=== PATIENT | female | born 1975 | race Two or more races ===

== ENCOUNTER 2021-10-29 08:55 | Inpatient (IN) | payer MEDICAID, OTHER ==
[~2021-10-29] VITALS: Ht 157.5 cm; Wt 82.0 kg
[2021-10-29 10:43] LABS: Basophils # (auto) 0 10 ^3/uL (0-0.2); Basophils % (auto) 0.1 % (0.0-2.0); Eosinophils # (auto) 0 10 ^3/uL (0-0.8); Hematocrit 39.6 % (36.0-46.0); Hemoglobin 12.9 g/dL (12.2-16.2); Lymphocytes # (auto) 1.2 10 ^3/uL (0.4-5.4); Lymphocytes % (auto) 14.9 % (10.0-50.0); Mean Corpuscular Hemoglobin 26.5 pg (28.0-32.0); Mean Corpuscular Hgb Conc. 32.6 g/dL (32.0-36.0); Mean Corpuscular Volume 81.1 fL (80.0-100.0); Monocytes # (auto) 0.6 10 ^3/uL (0-1.3); Monocytes % (auto) 7.1 % (0.0-12.0); Neutrophils # (auto) 6.5 10 ^3/uL (1.6-8.6); Neutrophils % (auto) 77.9 % (37.0-80.0); Red Blood Cells 4.88 10^6/uL (4.0-5.20); Red Cell Distribution Width 14.6 % (11.8-14.3); White Blood Cell 8.4 10^3/uL (4.4-10.8)
[2021-10-29 10:45] LABS: Albumin 2.5 g/dL (3.4-5.0); Magnesium 2.9 mg/dL (1.6-2.6); Potassium 3.8 mmol/L (3.5-5.1)
[2021-10-29 10:58] LABS: BUN/Creatinine Ratio 10.3; Bilirubin, Total 0.4 mg/dL (0.2-1.0); Total Protein 7.3 g/dL (6.4-8.2)
[2021-10-29] MEDS ORDERED: DexAMETHasone SOD PHOS 10MG/1ML VIAL INJ IV ONE (11:45)
[2021-10-29] MEDS ORDERED: cefTRIAXone 1GM/50ML D5W 50 ML IV ONE (11:45)
[2021-10-29] MEDS ORDERED: AZITHROMYCIN 500MG/ 250ML 250 ML IV ONE (11:45)
[2021-10-29] MEDS ORDERED: DEXTROSE (50%) 50ML SYRG IV PRN ×2 (13:15→17:30)
[2021-10-29] MEDS ORDERED: NITROGLYCERIN 0.4 MG SL TAB SL PRN ×2 (13:15→18:30)
[2021-10-29] MEDS ORDERED: MORPHINE SULFATE INJECTION 2 MG/ML SYRG IV PRN ×3 (13:15→18:30)
[2021-10-29] MEDS ORDERED: IOHEXOL 350 MG/ML 100ML IJ ONE (13:51)
[2021-10-29] MEDS ORDERED: ACCU-CHEK COMFORT CURVE STRIP VI SCH (17:00)
[2021-10-29] MEDS ORDERED: InsuLIN REG 1unit/0.01ml Soln (100units/ml) SC SCH ×2 (17:00→22:00)
[2021-10-29] MEDS: ACCU-CHEK COMFORT CURVE STRIP VI SCH (18:00)
[2021-10-29] MEDS: InsuLIN REG 1unit/0.01ml Soln (100units/ml) SC SCH (18:00)
[2021-10-29] MEDS ORDERED: REMDESIVIR PER PHARMACY 0 ML IV SCH (18:15)
[2021-10-29] MEDS ORDERED: METOPROLOL SUCCINATE XL 50 MG TAB PO ONE (18:15)
[2021-10-29] MEDS ORDERED: ACETAMINOPHEN 500 MG TAB PO PRN (18:15)
[2021-10-29] MEDS ORDERED: FUROSEMIDE 20 MG/2 ML VIAL IV ONE (18:15)
[2021-10-29] MEDS ORDERED: FAMOTIDINE (10MG/ML) 2ML VL IV ONE (18:15)
[2021-10-29] MEDS ORDERED: ALUM & MAG HYDROX-SIMETH LIQ(MAALOX) 30 ML PO PRN (18:30)
[2021-10-29] MEDS ORDERED: LORazepam 0.5 MG TAB PO PRN (18:30)
[2021-10-29] MEDS ORDERED: DOCUSATE SOD 100 MG CAP PO PRN (18:30)
[2021-10-29] MEDS ORDERED: METOCLOPRAMIDE HCL 5MG/ml INJ 2ml VIAL IV PRN (18:30)
[2021-10-29] MEDS ORDERED: HYDROcodone-ACET 5/325MG TAB PO PRN (18:30)
[2021-10-29 19:30] LABS: Thyroid Stimulating Hormone 0.53 uIU/mL (0.358-3.74)
[2021-10-29] MEDS ORDERED: REMDESIVIR 200 MG in NS 210ml LOADING DOSE ADULT IV ONE (20:30)
[2021-10-29 21:55] VITALS: BP 110/73
[2021-10-29 21:55] LABS: Cholesterol 106 mg/dL (< 200); HDL Cholesterol 44 mg/dL (40-59); LDL Cholesterol 53 mg/dL (< 100); Triglycerides 89 mg/dL (< 150)
[2021-10-29 22:00] VITALS: BP 110/73
[2021-10-29] MEDS ORDERED: PNEUMOCOCCAL VACC POLYS 25 MCG/0.5 ML VIAL IM ONE (22:00)
[2021-10-29] MEDS ORDERED: ATORVASTATIN 20 MG TAB PO SCH (22:00)
[2021-10-29] MEDS: BUDESONIDE (INHALATION) 180 MCG IH IN SCH (22:00)
[2021-10-29] MEDS ORDERED: INFLUENZA QUAD 2021-2022 0.5 ML SYRG IM ONE (22:00)
[2021-10-29] MEDS ORDERED: METF-370 PO (22:00)
[2021-10-29] MEDS: FAMOTIDINE (10MG/ML) 2ML VL IV SCH (22:16)
[2021-10-29] MEDS: DOXYCYCLINE 100MG/250ML 250 ML IV SCH (22:16)
[2021-10-29] MEDS: POTASSIUM CHL 20 Meq TABLET PO SCH (22:17)
[2021-10-29] MEDS: ENOXAPARIN SOD 40 MG/0.4 ML SYRINGE SC SCH (22:17)
[2021-10-29] MEDS: ALBUTEROL SULF HFA 90MCG INH 200DOSE IN PRN (22:48)
[2021-10-30] MEDS: ACCU-CHEK COMFORT CURVE STRIP VI SCH ×4 (00:01→17:38)
[2021-10-30] MEDS: InsuLIN REG 1unit/0.01ml Soln (100units/ml) SC SCH ×4 (00:01→17:40)
[2021-10-30 05:00] VITALS: BP 102/70
[2021-10-30] MEDS: FUROSEMIDE 20 MG/2 ML VIAL IV SCH ×2 (05:19→17:38)
[2021-10-30] MEDS: BUDESONIDE (INHALATION) 180 MCG IH IN SCH ×2 (05:55→19:22)
[2021-10-30] MEDS: ALBUTEROL SULF HFA 90MCG INH 200DOSE IN PRN ×2 (05:55→20:51)
[2021-10-30 08:19] LABS: Basophils # (auto) 0 10 ^3/uL (0-0.2); Basophils % (auto) 0.1 % (0.0-2.0); Eosinophils # (auto) 0 10 ^3/uL (0-0.8); Hematocrit 38.4 % (36.0-46.0); Hemoglobin 12.6 g/dL (12.2-16.2); Lymphocytes # (auto) 1.4 10 ^3/uL (0.4-5.4); Lymphocytes % (auto) 29.6 % (10.0-50.0); Mean Corpuscular Hemoglobin 26.5 pg (28.0-32.0); Mean Corpuscular Hgb Conc. 32.8 g/dL (32.0-36.0); Mean Corpuscular Volume 80.8 fL (80.0-100.0); Monocytes # (auto) 0.8 10 ^3/uL (0-1.3); Monocytes % (auto) 17.5 % (0.0-12.0); Neutrophils # (auto) 2.5 10 ^3/uL (1.6-8.6); Neutrophils % (auto) 52.8 % (37.0-80.0); Nucleated Red Blood Cells % 0.1 %; Red Blood Cells 4.75 10^6/uL (4.0-5.20); Red Cell Distribution Width 14.9 % (11.8-14.3); White Blood Cell 4.7 10^3/uL (4.4-10.8)
[2021-10-30 08:26] LABS: Potassium 3.6 mmol/L (3.5-5.1)
[2021-10-30 08:34] LABS: INR 0.99 (0.9-1.15); Partial Thromboplastin Time 28.2 sec (23.6-33.0)
[2021-10-30 08:36] LABS: Albumin 2.5 g/dL (3.4-5.0); BUN/Creatinine Ratio 22.1; Bilirubin, Total 0.3 mg/dL (0.2-1.0); Calcium 7.9 mg/dL (8.5-10.1); Phosphorus 2.6 mg/dL (2.5-4.90); Total Protein 7.2 g/dL (6.4-8.2); Uric Acid 3.6 mg/dL (2.6-6.0)
[2021-10-30 09:11] VITALS: BP 99/69
[2021-10-30] MEDS: IVERMECTIN 3 MG TAB PO SCH (09:41)
[2021-10-30] MEDS: ASPirin 81 mg TAB PO SCH (09:44)
[2021-10-30] MEDS: ENOXAPARIN SOD 40 MG/0.4 ML SYRINGE SC SCH ×2 (09:45→21:31)
[2021-10-30] MEDS: ZINC SULFATE 220mg CAP or TAB PO SCH (09:45)
[2021-10-30] MEDS: POTASSIUM CHL 20 Meq TABLET PO SCH ×2 (09:45→21:31)
[2021-10-30] MEDS: ASCORBIC ACID 1,000 MG TAB PO SCH (09:45)
[2021-10-30] MEDS: DexAMETHasone SOD PHOS 10MG/1ML VIAL INJ IV SCH (09:46)
[2021-10-30] MEDS: FAMOTIDINE (10MG/ML) 2ML VL IV SCH (09:46)
[2021-10-30] MEDS: DOXYCYCLINE 100MG/250ML 250 ML IV SCH ×2 (09:46→21:31)
[2021-10-30] MEDS ORDERED: METOPROLOL SUCCINATE XL 50 MG TAB PO SCH (10:00)
[2021-10-30] MEDS ORDERED: CHOLECALCIFEROL (VITD3) 2,000 UNIT CAP/TAB PO SCH (10:00)
[2021-10-30 13:00] VITALS: BP 111/74
[2021-10-30] MEDS ORDERED: REMDESIVIR 200 MG in NS 210ml LOADING DOSE ADULT IV ONE (13:00)
[2021-10-30] MEDS ORDERED: DEXTROSE (50%) 50ML SYRG IV PRN (16:45)
[2021-10-30] MEDS ORDERED: ERGOCALCIFEROL 50,000 UNIT(1.25MG) CAP PO SCH (16:45)
[2021-10-30 17:12] VITALS: BP 113/72
[2021-10-30 22:00] VITALS: BP 114/70
[2021-10-30] MEDS ORDERED: INSULIN LANTUS (GLARGINE) 1 /0.01ml (100units/ml) SC SCH (22:00)
[2021-10-31] MEDS: InsuLIN REG 1unit/0.01ml Soln (100units/ml) SC SCH ×5 (00:04→23:54)
[2021-10-31] MEDS: ACCU-CHEK COMFORT CURVE STRIP VI SCH ×5 (00:04→23:37)
[2021-10-31 05:00] VITALS: BP 100/67
[2021-10-31] MEDS: FUROSEMIDE 20 MG/2 ML VIAL IV SCH ×2 (05:54→17:57)
[2021-10-31 09:00] VITALS: BP 98/68
[2021-10-31 09:09] LABS: Albumin 2.6 g/dL (3.4-5.0); BUN/Creatinine Ratio 21.3; Calcium 8.4 mg/dL (8.5-10.1); Potassium 3.5 mmol/L (3.5-5.1)
[2021-10-31 09:12] LABS: Bilirubin, Total 0.4 mg/dL (0.2-1.0); Total Protein 7.7 g/dL (6.4-8.2)
[2021-10-31] MEDS: BUDESONIDE (INHALATION) 180 MCG IH IN SCH ×2 (09:12→20:02)
[2021-10-31] MEDS: ALBUTEROL SULF HFA 90MCG INH 200DOSE IN PRN ×2 (09:12→20:02)
[2021-10-31] MEDS: ASCORBIC ACID 1,000 MG TAB PO SCH (10:08)
[2021-10-31] MEDS: ENOXAPARIN SOD 40 MG/0.4 ML SYRINGE SC SCH ×2 (10:08→21:44)
[2021-10-31] MEDS: DOXYCYCLINE 100MG/250ML 250 ML IV SCH ×2 (10:08→21:42)
[2021-10-31] MEDS: DexAMETHasone SOD PHOS 10MG/1ML VIAL INJ IV SCH (10:09)
[2021-10-31] MEDS: ZINC SULFATE 220mg CAP or TAB PO SCH (10:09)
[2021-10-31] MEDS: POTASSIUM CHL 20 Meq TABLET PO SCH ×2 (10:09→21:43)
[2021-10-31] MEDS: IVERMECTIN 3 MG TAB PO SCH (10:09)
[2021-10-31] MEDS: PANTOPRAZOLE 40 MG TAB PO SCH (10:09)
[2021-10-31] MEDS: ASPirin 81 mg TAB PO SCH (10:20)
[2021-10-31] MEDS: INSULIN LANTUS (GLARGINE) 1 /0.01ml (100units/ml) SC SCH ×2 (10:21→21:40)
[2021-10-31] MEDS: ACETAMINOPHEN 325 MG TAB PO PRN (12:25)
[2021-10-31 13:00] VITALS: BP 104/72
[2021-10-31] MEDS: REMDESIVIR 100mg 100 MG in SODIUM CHL 0.9% 230 ML IV SCH (15:28)
[2021-10-31 17:00] VITALS: BP 100/64
[2021-10-31] MEDS: metFORMIN HYDROCHLORIDE 850 MG TAB PO SCH (17:57)
[2021-10-31 21:44] VITALS: BP 101/64
[2021-11-01] MEDS: ACETAMINOPHEN 325 MG TAB PO PRN ×2 (03:32→10:53)
[2021-11-01 05:00] VITALS: BP 105/69
[2021-11-01] MEDS: ACCU-CHEK COMFORT CURVE STRIP VI SCH ×4 (05:29→22:58)
[2021-11-01] MEDS: InsuLIN REG 1unit/0.01ml Soln (100units/ml) SC SCH ×4 (05:49→23:03)
[2021-11-01] MEDS: FUROSEMIDE 20 MG/2 ML VIAL IV SCH ×2 (05:50→18:00)
[2021-11-01 08:36] LABS: Potassium 3.9 mmol/L (3.5-5.1)
[2021-11-01 08:43] LABS: Albumin 2.6 g/dL (3.4-5.0); BUN/Creatinine Ratio 36.4; Bilirubin, Total 0.3 mg/dL (0.2-1.0); Calcium 8.6 mg/dL (8.5-10.1); Total Protein 6.9 g/dL (6.4-8.2)
[2021-11-01 09:00] VITALS: BP 106/68
[2021-11-01] MEDS: metFORMIN HYDROCHLORIDE 850 MG TAB PO SCH ×2 (10:52→18:08)
[2021-11-01] MEDS: DOXYCYCLINE 100MG/250ML 250 ML IV SCH (10:53)
[2021-11-01] MEDS: ASPirin 81 mg TAB PO SCH (10:53)
[2021-11-01] MEDS: ZINC SULFATE 220mg CAP or TAB PO SCH (10:53)
[2021-11-01] MEDS: POTASSIUM CHL 20 Meq TABLET PO SCH ×2 (10:53→22:57)
[2021-11-01] MEDS: DexAMETHasone SOD PHOS 10MG/1ML VIAL INJ IV SCH (10:53)
[2021-11-01] MEDS: PANTOPRAZOLE 40 MG TAB PO SCH (10:53)
[2021-11-01] MEDS: ASCORBIC ACID 1,000 MG TAB PO SCH (10:54)
[2021-11-01] MEDS: IVERMECTIN 3 MG TAB PO SCH (10:54)
[2021-11-01] MEDS: ENOXAPARIN SOD 40 MG/0.4 ML SYRINGE SC SCH ×2 (10:55→22:58)
[2021-11-01] MEDS: INSULIN LANTUS (GLARGINE) 1 /0.01ml (100units/ml) SC SCH ×2 (10:56→23:02)
[2021-11-01 13:00] VITALS: BP 118/78
[2021-11-01] MEDS: REMDESIVIR 100mg 100 MG in SODIUM CHL 0.9% 230 ML IV SCH (14:21)
[2021-11-01] MEDS: BUDESONIDE (INHALATION) 180 MCG IH IN SCH ×2 (15:24→19:33)
[2021-11-01] MEDS: ALBUTEROL SULF HFA 90MCG INH 200DOSE IN PRN ×2 (15:24→19:34)
[2021-11-01 16:18] VITALS: BP 112/72
[2021-11-01 22:00] VITALS: BP 100/67
[2021-11-01] MEDS: DOXYCYCLINE 100 MG TAB/CAP PO SCH (22:57)
[2021-11-02 05:00] VITALS: BP 109/72
[2021-11-02] MEDS: FUROSEMIDE 20 MG/2 ML VIAL IV SCH (06:00)
[2021-11-02] MEDS: ACCU-CHEK COMFORT CURVE STRIP VI SCH ×2 (06:25→12:14)
[2021-11-02] MEDS: InsuLIN REG 1unit/0.01ml Soln (100units/ml) SC SCH ×2 (06:26→12:17)
[2021-11-02 08:08] LABS: Eosinophils # (auto) 0.1 10 ^3/uL (0-0.8); Hemoglobin 13.1 g/dL (12.2-16.2); Monocytes # (auto) 1.3 10 ^3/uL (0-1.3)
[2021-11-02 08:13] LABS: Basophils # (auto) 0.1 10 ^3/uL (0-0.2); Basophils % (auto) 0.5 % (0.0-2.0); Eosinophils % (auto) 0.4 % (0.0-7.0); Hematocrit 39.9 % (36.0-46.0); Lymphocytes # (auto) 4.6 10 ^3/uL (0.4-5.4); Lymphocytes % (auto) 38.2 % (10.0-50.0); Mean Corpuscular Hemoglobin 26.7 pg (28.0-32.0); Mean Corpuscular Hgb Conc. 32.9 g/dL (32.0-36.0); Mean Corpuscular Volume 81.1 fL (80.0-100.0); Monocytes % (auto) 11.2 % (0.0-12.0); Neutrophils % (auto) 49.7 % (37.0-80.0); Nucleated Red Blood Cells % 0.2 %; Red Blood Cells 4.92 10^6/uL (4.0-5.20); Red Cell Distribution Width 14.3 % (11.8-14.3)
[2021-11-02 08:20] LABS: Albumin 2.6 g/dL (3.4-5.0); BUN/Creatinine Ratio 32.8; Calcium 8.8 mg/dL (8.5-10.1); Potassium 4.3 mmol/L (3.5-5.1)
[2021-11-02 08:23] LABS: Bilirubin, Total 0.3 mg/dL (0.2-1.0); Total Protein 6.7 g/dL (6.4-8.2)
[2021-11-02] MEDS: BUDESONIDE (INHALATION) 180 MCG IH IN SCH (08:29)
[2021-11-02] MEDS: ALBUTEROL SULF HFA 90MCG INH 200DOSE IN PRN (08:29)
[2021-11-02 09:00] VITALS: BP 110/72
[2021-11-02] MEDS: metFORMIN HYDROCHLORIDE 850 MG TAB PO SCH (09:07)
[2021-11-02] MEDS: DexAMETHasone SOD PHOS 10MG/1ML VIAL INJ IV SCH (10:00)
[2021-11-02] MEDS ORDERED: ASPirin 81 mg TAB PO SCH (10:00)
[2021-11-02] MEDS ORDERED: DOX100T PO (11:28)
[2021-11-02] MEDS ORDERED: ALBUAER3 IN (11:28)
[2021-11-02] MEDS ORDERED: METF-371 PO (11:28)
[2021-11-02] MEDS ORDERED: GLIP5TAB12 PO (11:28)
[2021-11-02] MEDS ORDERED: ASCO10003 PO (11:28)
[2021-11-02] MEDS ORDERED: DEX4T PO (11:28)
[2021-11-02] MEDS ORDERED: ZINC220T6 PO (11:28)
[2021-11-02] MEDS ORDERED: IVER3TAB PO (11:28)
[2021-11-02] MEDS ORDERED: ASPI1TAB20 PO (11:28)
[2021-11-02] MEDS: ZINC SULFATE 220mg CAP or TAB PO SCH (12:05)
[2021-11-02] MEDS: ASPirin 81 mg TAB PO SCH (12:05)
[2021-11-02] MEDS: POTASSIUM CHL 20 Meq TABLET PO SCH (12:05)
[2021-11-02] MEDS: ASCORBIC ACID 1,000 MG TAB PO SCH (12:06)
[2021-11-02] MEDS: IVERMECTIN 3 MG TAB PO SCH (12:06)
[2021-11-02] MEDS: ENOXAPARIN SOD 40 MG/0.4 ML SYRINGE SC SCH (12:06)
[2021-11-02] MEDS: DOXYCYCLINE 100 MG TAB/CAP PO SCH (12:06)
[2021-11-02] MEDS: PANTOPRAZOLE 40 MG TAB PO SCH (12:06)
[2021-11-02] MEDS: INSULIN LANTUS (GLARGINE) 1 /0.01ml (100units/ml) SC SCH (12:08)
[2021-11-02 13:00] VITALS: BP 108/74
[2021-11-02 13:56] VITALS: BP 109/72
== END 2021-11-02 16:12 | disposition home or self-care (01) | DRG 177 ==
LOC: ER 08:55 → TELE 13:11 → TELE-WESTW 21:05
PROVIDERS: ADMIT Hospitalist; ATTEND Internal Medicine
PROC: XW033E5 Introduction of Remdesivir Anti-infective into Peripheral Vein, Percutaneous Approach, New Technology Group 5 (ICD-10-PCS; principal; 2021-10-29)
DX: U07.1 COVID-19 (principal); J12.82 Pneumonia due to coronavirus disease 2019; J96.01 Acute respiratory failure with hypoxia; D89.839 Cytokine release syndrome, grade unspecified; E11.8 Type 2 diabetes mellitus with unspecified complications; E66.01 Morbid (severe) obesity due to excess calories; E55.9 Vitamin D deficiency, unspecified; E78.5 Hyperlipidemia, unspecified; I11.0 Hypertensive heart disease with heart failure; N63.12 Unspecified lump in the right breast, upper inner quadrant; I10 Essential (primary) hypertension; Z68.33 Body mass index [BMI] 33.0-33.9, adult; Z90.49 Acquired absence of other specified parts of digestive tract; Z23 Encounter for immunization
CPT/HCPCS: 36415; 36600; 71045; 71275; 80053; 80061; 82306; 82728; 82805; 82962; 83036; 83605; 83615; 83735; 83880; 84100; 84443; 84484; 84550; 85025; 85379; 85610; 85730; 86141; 87040; 87426; 93005; 94640; 96365; 96368; 96372; 96375; 99291; G0378; J0696; J1100; J1815; J3490